=== PATIENT | female | born 1945 | race Caucasian/White ===

== ENCOUNTER 2019-01-06 12:12 | Emergency (ER) | payer OTHER ==
[~2019-01-06] VITALS: Ht 162.6 cm; Wt 104.8 kg
[~2019-01-06 12:12] MED LIST: AMOX1XR PO; ASPI81CH PO; DOCU100 PO; FISH1000 PO; FURO40 PO; GLUCHON PO; Hair, Skin & N1 EACH PO; METF500C PO; PRAV20 PO
== END 2019-01-06 13:54 | disposition home or self-care (01) ==
LOC: ER 12:12
DX: I82.491 Acute embolism and thrombosis of other specified deep vein of right lower extremity (principal); Z79.82 Long term (current) use of aspirin; Z79.899 Other long term (current) drug therapy; Z79.84 Long term (current) use of oral hypoglycemic drugs
CPT/HCPCS: 93971; 99283-25

== ENCOUNTER → 2019-07-04 | Outpatient (CLI) | payer OTHER | END | disposition home or self-care (01) | LOC: LAB 09:15 → LAB SHORT 09:15 | DX: R35.0 Frequency of micturition (principal) | CPT/HCPCS: 87077; 87086; 87186 ==

== ENCOUNTER → 2020-09-16 | Outpatient (CLI) | payer OTHER | END | disposition home or self-care (01) | LOC: LAB 08:29 → LAB SHORT 08:29 | DX: D48.5 Neoplasm of uncertain behavior of skin (principal) | CPT/HCPCS: 88305 ==

== ENCOUNTER → 2020-10-03 | Outpatient (CLI) | payer OTHER | END | disposition home or self-care (01) | LOC: PLD 11:46 → LAB SHORT 11:46 | DX: C44.310 Basal cell carcinoma of skin of unspecified parts of face (principal) | CPT/HCPCS: 88305 ==

== ENCOUNTER 2021-09-24 12:31 | Day surgery (SDC) | payer OTHER ==
[~2021-09-24] VITALS: Ht 162.6 cm; Wt 100.5 kg
[2021-09-24] MEDS ORDERED: LISI5 (13:04)
[2021-09-24] MEDS ORDERED: LEVSOD25 (13:05)
--- NOTE | 2021-09-24 13:37 | NUR ---
09/24/21 [id number] Bea Herr FIRST ATTEMPT MISSED BY FLORES IN THE RIGHT FOREARM. SECOND ATTEMPT MISSED BY RN IN THE RIGHT WRIST. THIRD ATTEMPT SUCCESFUL IN THE RIGHT FOREARM BY RN
== END 2021-09-24 15:41 | disposition home or self-care (01) ==
LOC: ORSCSDS 12:31
PROVIDERS: Internal Medicine Gastroenterology
PROC: 0DBM8ZX Excision of Descending Colon, Via Natural or Artificial Opening Endoscopic, Diagnostic (ICD-10-PCS; principal; 2021-09-24 14:00)
DX: Z12.11 Encounter for screening for malignant neoplasm of colon (principal); Z86.010 Personal history of colon polyps; D37.4 Neoplasm of uncertain behavior of colon; K57.30 Diverticulosis of large intestine without perforation or abscess without bleeding; K64.8 Other hemorrhoids; E78.5 Hyperlipidemia, unspecified; E11.9 Type 2 diabetes mellitus without complications; Z79.82 Long term (current) use of aspirin; Z79.899 Other long term (current) drug therapy; E66.01 Morbid (severe) obesity due to excess calories; Z68.38 Body mass index [BMI] 38.0-38.9, adult
CPT/HCPCS: 82947; J2704; J7120

== ENCOUNTER 2024-06-09 10:58 | Day surgery (SDC) | payer OTHER ==
[~2024-06-09 10:58] MED LIST changes: +Bupivacaine 0.5% HCl 5 MG/ML 30MLVIAL ONE; +LEVSOD25; +LISI5; +Lactated Ringer's 1,000 ML IV ONE
[2024-06-09] MEDS ORDERED: CeFAZolin Sodium 2,000 MG VIAL ONE (11:12)
[2024-06-09] MEDS ORDERED: NS 50 ML IV ONE (11:13)
[2024-06-09] MEDS ORDERED: GABA100 PO (11:37)
[2024-06-09] MEDS ORDERED: GABA300 PO (11:37)
[2024-06-09] MEDS ORDERED: Lactated Ringer's 1,000 ML IV ONE ×2 (11:52→14:26)
[2024-06-09] MEDS ORDERED: Bupivacaine 0.5% HCl 5 MG/ML 30MLVIAL ONE (12:24)
[2024-06-09] MEDS ORDERED: Rocuronium Bromide 10 MG/ML 5ML Injection IV ONE (12:24)
[2024-06-09] MEDS ORDERED: Dexamethasone Sod Phos 10 MG/ML 1ML VIAL ONE (12:24)
[2024-06-09] MEDS ORDERED: Ondansetron HCl 2 MG / ML 2ML Vial ONE (12:24)
[2024-06-09] MEDS ORDERED: Lidocaine 2%-Epineph 1:200000 20 ML SDV ONE (12:24)
[2024-06-09] MEDS ORDERED: propofoL 20 ML IV ONE ×2 (12:34→13:49)
[2024-06-09] MEDS ORDERED: FentaNYL Citrate 50 MCG/ML 2 ML Injection ONE (12:34)
[2024-06-09] MEDS ORDERED: Ropivacaine 0.5% HCL/PF 5 MG/ML 30ML Vial ONE ×2 (13:02→13:11)
--- NOTE | 2024-06-09 13:32 | NUR ---
06/09/24 1332 Jeannie Blandon TIMEOUT COMPLETED PRIOR TO BLOCK PROCEDURE TIMEOUT: 1319 INJECTION: 1326 BLOCK COMPLETED: 1333
[2024-06-09] MEDS ORDERED: Sugammadex Sodium 200 MG/2ML SDV (100 MG/ML) ONE (14:48)
[2024-06-09 15:28] VITALS: BP 119/85
== END 2024-06-09 16:10 | disposition home or self-care (01) ==
LOC: ORSCSDS 10:58
PROVIDERS: Podiatrist Foot & Ankle Surgery
PROC: 0LQN0ZZ Repair Right Lower Leg Tendon, Open Approach (ICD-10-PCS; principal; 2024-06-09 12:45)
PROC: 0L8N0ZZ Division of Right Lower Leg Tendon, Open Approach (ICD-10-PCS; principal; 2024-06-09 12:45)
PROC: 0QBL0ZZ Excision of Right Tarsal, Open Approach (ICD-10-PCS; principal; 2024-06-09 12:45)
DX: M76.61 Achilles tendinitis, right leg (principal); M21.6X1 Other acquired deformities of right foot; I10 Essential (primary) hypertension; E11.9 Type 2 diabetes mellitus without complications; E78.5 Hyperlipidemia, unspecified; E03.9 Hypothyroidism, unspecified; Z79.84 Long term (current) use of oral hypoglycemic drugs; Z79.899 Other long term (current) drug therapy; Z79.82 Long term (current) use of aspirin; Z86.718 Personal history of other venous thrombosis and embolism; E66.01 Morbid (severe) obesity due to excess calories; Z68.39 Body mass index [BMI] 39.0-39.9, adult
CPT/HCPCS: 82947; C1713; J0690; J1100; J2405; J2704; J2795; J3010; J7120

== ENCOUNTER 2024-10-26 11:08 | Day surgery (SDC) | payer OTHER ==
[2024-10-26] VITALS (17 sets, daily range): BP systolic 83–161; BP diastolic 47–102
[~2024-10-26] VITALS: Ht 162.6 cm; Wt 102.8 kg
[~2024-10-26 11:08] MED LIST changes: +ASCORBIC ACID500 MG PO; +Acetaminophen 500 MG Tab PO SCH; -Bupivacaine 0.5% HCl 5 MG/ML 30MLVIAL ONE; +CeFAZolin Sodium 2,000 MG in NS 100 ML IV SCH; +Chlorhexidine Mouth Care 15 ML UDC MT SCH; +FISH OIL 1,0001 EA10 PO; -FISH1000 PO; +GABA100 PO; +GABA300 PO; -LEVSOD25; +LEVSOD25 PO; -LISI5; +LISI5 PO; -Lactated Ringer's 1,000 ML IV ONE; +Lactated Ringer's 1,000 ML IV SCH; +OxyCODONE HCL 10 MG TABCR PO SCH; +Ropivacaine 0.5% HCl/Pf 123.125 MG,EPINEPHrine HCL 0.25 MG,Ketorolac Tromethamine 15 MG... INFIL SCH; +Tranexamic Acid 1,000 MG in NS 100 ML IV SCH; +VITAMIN D310 MC4 PO; +VITAMIN E67 MG PO
[2024-10-26] MEDS ORDERED: Magnesium Sulfate 500 MG / ML 2ML Vial ONE (12:08)
[2024-10-26] MEDS ORDERED: Ondansetron HCl 2 MG / ML 2ML Vial ONE (12:13)
[2024-10-26] MEDS ORDERED: Metoclopramide HCl 5MG / ML 2ML Vial ONE (12:13)
[2024-10-26] MEDS ORDERED: HYDROmorphone HCl/Pf 1MG SYR ONE (12:13)
[2024-10-26] MEDS ORDERED: Midazolam HCl 1MG / ML 2ML Vial ONE (12:14)
[2024-10-26] MEDS ORDERED: Promethazine HCl 25 MG Tab PO PRN (12:20)
[2024-10-26] MEDS ORDERED: OxyCODONE HCL 5 MG TAB PO PRN ×2 (12:20)
[2024-10-26] MEDS ORDERED: Metoclopramide HCl 5MG / ML 2ML Vial IV PRN (12:25)
[2024-10-26] MEDS ORDERED: HYDROmorphone HCl/Pf 1MG SYR IV PRN (12:25)
[2024-10-26] MEDS ORDERED: Lactated Ringer's 1,000 ML IV SCH (12:25)
[2024-10-26] MEDS ORDERED: Ondansetron HCl 2 MG / ML 2ML Vial IV PRN (12:25)
[2024-10-26] MEDS ORDERED: Magnesium Hydroxide Conc 10 ML UDC PO PRN (12:25)
[2024-10-26] MEDS ORDERED: DiphenhydrAMINE HCL 25 MG Cap PO PRN (12:30)
[2024-10-26] MEDS ORDERED: Bisacodyl 10 MG Supp PR PRN (12:30)
[2024-10-26] MEDS ORDERED: FLU VACC TS2024-25(6MOS UP)/PF 45 MCG/0.5 ML SYRINGE IM SCH (12:30)
[2024-10-26] MEDS ORDERED: Phenylephrine HCl 100 MCG/ML-NS 10MLSYR (1MG/10ML) ONE ×2 (12:55→13:46)
[2024-10-26] MEDS ORDERED: Ketorolac Tromethamine 15mg Vial IV SCH (13:40)
[2024-10-26] MEDS ORDERED: propofoL 20 ML IV ONE (13:46)
[2024-10-26] MEDS ORDERED: Acetaminophen 500 MG Tab PO SCH (16:00)
--- NOTE | 2024-10-26 16:58 | NUR ---
POST-OP R TKA, SPINAL BLOCK IN EFFECT WITH DECREASED SENSATION TO BILAT LE. VITALS ARE STABLE AND TXA IS GIVEN. AQUACEL AND DEMETRIA WRAP C/D/I. SCDS, AND TEDS IN PLACE. PATIENT DENIES PAIN, N/V. PLAN TO WORK WITH THERAPY WHEN FULL SENSATION RETURNS.
[2024-10-26] MEDS ORDERED: CeFAZolin Sodium 2,000 MG in NS 100 ML IV SCH (20:00)
[2024-10-26] MEDS ORDERED: Docusate Sodium 100 MG Cap PO SCH (21:00)
[2024-10-27 00:16] VITALS: BP 140/89
[2024-10-27 03:24] VITALS: BP 121/73
[2024-10-27 05:44] LABS: BASOPHILS ABSOLUTE AUTO 0.04 K/mm3 (0.00-0.23); BASOPHILS PERCENT AUTO 0 % (0-2); EOSINOPHILS ABSOLUTE AUTO 0.12 K/mm3 (0.00-0.68); EOSINOPHILS PERCENT AUTO 1 % (0-6); Hematocrit 36.6 % (33.0-51.0); Hemoglobin 11.6 g/dL (11.5-16.0); IMMATURE GRAN ABSOLUTE AUTO 0.05 K/mm3 (0.00-0.10); IMMATURE GRAN PERCENT AUTO 0 % (0-1); LYMPHOCYTES ABSOLUTE AUTO 1.78 K/mm3 (0.84-5.20); LYMPHOCYTES PERCENT AUTO 13 % (21-46); MONOCYTES ABSOLUTE AUTO 1.26 K/mm3 (0.16-1.47); MONOCYTES PERCENT AUTO 9 % (4-13); Mean Corpuscular HGB 27.4 pg (26.0-34.0); Mean Corpuscular HGB Conc 31.7 g/dL (31.5-36.5); Mean Corpuscular Volume 86 fL (80-100); Mean Platelet Volume 9.2 fL (9.1-12.4); NEUTROPHILS ABSOLUTE AUTO 10.63 K/mm3 (1.96-9.15); NEUTROPHILS PERCENT AUTO 77 % (41-73); Platelet Count 269 K/mm3 (150-400); RDW Coefficient Variation 14.1 % (11.7-14.2); RDW Standard Deviation 44.1 fL (35.1-46.3); Red Blood Cell Count 4.24 M/mm3 (3.80-5.20); White Blood Cell Count 13.88 K/mm3 (4.00-11.30)
[2024-10-27 06:09] LABS: Bun/Creatinine Ratio 29.1 (12.0-20.0); Calcium, Blood 8.4 mg/dL (8.5-10.1); Creatinine, Blood 0.65 mg/dL (0.40-1.00); Potassium, Blood 3.9 mmol/L (3.5-5.5)
[2024-10-27 07:19] VITALS: BP 128/67
--- NOTE | 2024-10-27 07:30 | NUR ---
SHIFT SUMMARY POD 1 S/P RIGHT TKA. DRESSING TO INCISION, AQUACEL AND DEMETRIA, CDI. PAIN MANAGED PER EMAR. CRYO IN PLACE T/O SHIFT. UP IN ROOM/BATHROOM WITH FWW, GB, SBA. IS VOIDING AND PASSING FLATUS. TOLERATING REGULAR DIET. ABX INFUSED PER ORDERS, IV SL. SPOUSE ATTENTIVE AT BEDSIDE. PT CURRENTLY DRESSED, IN CHAIR WITH BLE ELEVATED AND CRYO IN PLACE. CALL LIGHT IN REACH. PLAN TO WORK WITH THERAPY TODAY AND D/C HOME. REPORT GIVEN TO DAY RN.
[2024-10-27] MEDS ORDERED: Aspirin 81 MG Chew PO SCH (09:00)
[2024-10-27] MEDS ORDERED: OXAYDO5 M1 PO (09:20)
--- NOTE | 2024-10-27 10:25 | NUR ---
SUMMARY FINISHES THERAPY AND VOIDING, PASSING GAS. UP IN CHAIR. TOLERATING PAIN MEDICATIONS. ALL INSTRUCTIONS READY AND AWAITING DC HOME.
--- NOTE | 2024-10-27 12:49 | NUR ---
DISCHARGE IV TAKEN OUT INSTRCUTIONS SIGNED AND VERBALIZES UNDERSTANDING. PATIENT BELONGINGS TAKE OUT WITH SPOUSE. PRESCRIPTIONS PICKED UP PRIOR TO ADMIT. LEAVES IN PRIVATE CAR.
== END 2024-10-27 12:31 | disposition home or self-care (01) ==
LOC: ORSCMMR 11:08 → ORD 12:45 → ORSCMMR 12:45 → SURS 15:49 → ORSCMMR 15:49 → SURS 10-27 12:31
PROVIDERS: Orthopaedic Surgery
PROC: 0SRC0JA Replacement of Right Knee Joint with Synthetic Substitute, Uncemented, Open Approach (ICD-10-PCS; principal; 2024-10-26 12:45)
PROC: 8E0Y0CZ Robotic Assisted Procedure of Lower Extremity, Open Approach (ICD-10-PCS; principal; 2024-10-26 12:45)
DX: M17.11 Unilateral primary osteoarthritis, right knee (principal); E11.9 Type 2 diabetes mellitus without complications; E03.9 Hypothyroidism, unspecified; Z79.84 Long term (current) use of oral hypoglycemic drugs; Z79.899 Other long term (current) drug therapy; E66.9 Obesity, unspecified; Z68.38 Body mass index [BMI] 38.0-38.9, adult; G47.33 Obstructive sleep apnea (adult) (pediatric)
CPT/HCPCS: 36415; 73560-RT; 80048; 82947; 83735; 85025; 97110; 97116; 97161; A9270; C1713; C1776; J0171; J0690; J0735; J1171; J1885; J2250; J2371; J2405; J2704; J2765; J2795; J3475; J7120

== ENCOUNTER 2025-07-10 08:33 | Day surgery (SDC) | payer OTHER ==
[~2025-07-10] VITALS: Ht 162.6 cm; Wt 103.0 kg
[2025-07-10] VITALS (12 sets, daily range): BP systolic 105–139; BP diastolic 63–82
[~2025-07-10 08:33] MED LIST changes: -Acetaminophen 500 MG Tab PO SCH; -CeFAZolin Sodium 2,000 MG in NS 100 ML IV SCH; -Chlorhexidine Mouth Care 15 ML UDC MT SCH; -Lactated Ringer's 1,000 ML IV SCH; +OXAYDO5 M1 PO; -OxyCODONE HCL 10 MG TABCR PO SCH; -Ropivacaine 0.5% HCl/Pf 123.125 MG,EPINEPHrine HCL 0.25 MG,Ketorolac Tromethamine 15 MG... INFIL SCH; -Tranexamic Acid 1,000 MG in NS 100 ML IV SCH
[2025-07-10] MEDS ORDERED: Chlorhexidine Mouth Care 15 ML UDC MT SCH (09:00)
[2025-07-10] MEDS ORDERED: Ropivacaine 0.5% HCl/Pf 123.125 MG,EPINEPHrine HCL 0.25 MG,Ketorolac Tromethamine 15 MG... INFIL SCH (09:00)
[2025-07-10] MEDS ORDERED: CeFAZolin Sodium 2,000 MG in NS 100 ML IV SCH ×2 (09:00→20:00)
[2025-07-10] MEDS ORDERED: Tranexamic Acid 100 ML IV SCH (09:00)
[2025-07-10] MEDS ORDERED: Metoclopramide HCl 5MG / ML 2ML Vial IV PRN (10:45)
[2025-07-10] MEDS ORDERED: Ondansetron HCl 2 MG / ML 2ML Vial IV PRN ×2 (10:50→13:25)
[2025-07-10] MEDS ORDERED: FLU VACC TS2025(65UP)/MF59C/PF 45 MCG/0.5 ML SYRINGE IM SCH (10:55)
[2025-07-10] MEDS ORDERED: HYDROmorphone HCl/Pf 1MG SYR IV PRN ×3 (10:55→13:25)
[2025-07-10] MEDS ORDERED: Magnesium Hydroxide Conc 10 ML UDC PO PRN (11:00)
--- NOTE | 2025-07-10 11:15 | NUR ---
History, Chart, Medications and Allergies reviewed before start of procedure.Lungs clear T/O to Auscultation. Pre-Op teaching done. Pt verbalizes understanding. AT BEDSIDE
[2025-07-10] MEDS ORDERED: Midazolam HCl 1MG / ML 2ML Vial ONE (11:26)
[2025-07-10] MEDS ORDERED: Insulin Regular 100 UNIT/ML 10ML Vial SC SCH (11:30)
[2025-07-10] MEDS ORDERED: Phenylephrine HCl 100 MCG/ML-NS 10MLSYR (1MG/10ML) ONE (11:47)
[2025-07-10] MEDS ORDERED: FentaNYL Citrate 50 MCG/ML 2 ML Injection IV PRN ×2 (13:25)
[2025-07-10] MEDS ORDERED: MetFORMIN HCl 500 mg PO SCH (17:00)
[2025-07-10] MEDS ORDERED: Ketorolac Tromethamine 15mg Vial IV SCH (18:00)
[2025-07-10] MEDS ORDERED: ELIQUIS2.5 MG PO (18:39)
--- NOTE | 2025-07-10 19:22 | NUR ---
DISCHARGE SUMMARY S/P L TKA. A&O x4, VSS. TOLERATING FOOD & FLUIDS WELL. L KNEE w/TEFLA, TEGADERM, & DEMETRIA WRAP, NO DRAINAGE, C/D/I. ATTEMPT TO SEE THERAPY THIS AFTERNOON, STOOD AT EDGE OF BED & REVIEWED THERAPY TECHNIQUES. AMBULATED IN HALLWAY w/WALKER & ON STAIRS IN [facility] THIS EVENING WITH THIS RN AFTER RESIDUAL NUMBNESS WAS GONE. VOIDED SUCCESSFULLY. MINIMAL PAIN - CONTROLLED WELL PER EMAR. DISCHARGE INSTRUCTIONS REVIEWED & GIVEN. POLAR PACK SENT. ESCORTED OUT VIA WC.
[2025-07-11] MEDS ORDERED: Cholecalciferol 1000 Unit Tablet (=25MCG) PO SCH (09:00)
[2025-07-11] MEDS ORDERED: Vitamin E 400 Intn'l Units Cap PO SCH (09:00)
== END 2025-07-10 19:30 | disposition home or self-care (01) ==
LOC: ORSCMMR 08:33 → ORD 10:00 → ORSCMMR 10:00 → SURS 14:00 → ORSCMMR 19:30
PROVIDERS: Orthopaedic Surgery
PROC: 0SRD0JA Replacement of Left Knee Joint with Synthetic Substitute, Uncemented, Open Approach (ICD-10-PCS; principal; 2025-07-10 10:00)
DX: M17.12 Unilateral primary osteoarthritis, left knee (principal); I10 Essential (primary) hypertension; Z86.718 Personal history of other venous thrombosis and embolism; E66.9 Obesity, unspecified; Z68.39 Body mass index [BMI] 39.0-39.9, adult; E11.9 Type 2 diabetes mellitus without complications; Z79.01 Long term (current) use of anticoagulants; Z96.651 Presence of right artificial knee joint; Z79.899 Other long term (current) drug therapy
CPT/HCPCS: 73560-LT; 82947; A9270; C1713; C1776; J0166; J0690; J0735; J1885; J2250; J2371; J2704; J2795; J7120